=== PATIENT | male | born 1945 | race Caucasian/White ===

== ENCOUNTER 2017-04-14 14:00 | Outpatient (CLI) | payer MEDICARE, OTHER | END 2017-04-14 14:01 | disposition home or self-care (01) | LOC: LAB.R 14:00 | PROVIDERS: ATTEND Family Medicine | DX: S81.801D Unspecified open wound, right lower leg, subsequent encounter (principal) | CPT/HCPCS: 87070; 87077; 87205 ==

== ENCOUNTER 2017-04-22 12:55 | Outpatient (CLI) | payer MEDICARE, OTHER | END 2017-04-22 12:56 | disposition home or self-care (01) | LOC: LAB.F 12:55 | PROVIDERS: ATTEND Physician Assistant | DX: I48.91 Unspecified atrial fibrillation (principal) | CPT/HCPCS: 85610 ==

== ENCOUNTER 2017-04-25 13:21 | Outpatient (CLI) | payer MEDICARE, OTHER | END 2017-04-25 13:22 | disposition home or self-care (01) | LOC: LAB.F 13:21 | PROVIDERS: ATTEND Physician Assistant | DX: I48.91 Unspecified atrial fibrillation (principal) | CPT/HCPCS: 85610 ==

== ENCOUNTER 2017-04-29 15:56 | Outpatient (CLI) | payer MEDICARE, OTHER | END 2017-04-29 15:57 | disposition home or self-care (01) | LOC: LAB.F 15:56 | PROVIDERS: ATTEND Physician Assistant | DX: I48.91 Unspecified atrial fibrillation (principal) | CPT/HCPCS: 85610 ==

== ENCOUNTER 2017-05-05 09:34 | Outpatient (CLI) | payer MEDICARE, OTHER ==
[2017-05-05 18:19] LABS: BILIRUBIN,DIRECT 0.1 mg/dL (0.1-0.5); BILIRUBIN,TOTAL 0.7 mg/dL (0.2-1.0); CHOL/HDL RATIO 2.7 (<5.0); CHOLESTEROL 169 mg/dL; HDL CHOLESTEROL 63 mg/dL; LDL/HDL RATIO 1.1 (<3.6); TOTAL PROTEIN 6.6 g/dL (6.7-8.2); TRIGLYCERIDES 172 mg/dL; VLDL CHOLESTEROL 34 mg/dL
== END 2017-05-05 09:35 | disposition home or self-care (01) ==
LOC: LAB.F 09:34
PROVIDERS: ATTEND Internal Medicine Cardiovascular Disease
DX: I48.91 Unspecified atrial fibrillation (principal); I25.10 Atherosclerotic heart disease of native coronary artery without angina pectoris
CPT/HCPCS: 36415; 80061; 80076; 85610

== ENCOUNTER 2017-05-13 15:26 | Outpatient (CLI) | payer MEDICARE, OTHER | END 2017-05-13 15:27 | disposition home or self-care (01) | LOC: LAB.F 15:26 | PROVIDERS: ATTEND Physician Assistant | DX: I48.91 Unspecified atrial fibrillation (principal) | CPT/HCPCS: 85610 ==

== ENCOUNTER 2017-05-20 14:36 | Outpatient (CLI) | payer MEDICARE, OTHER | END 2017-05-20 14:37 | disposition home or self-care (01) | LOC: LAB.F 14:36 | PROVIDERS: ATTEND Physician Assistant | DX: I48.91 Unspecified atrial fibrillation (principal) | CPT/HCPCS: 85610 ==

== ENCOUNTER 2017-05-30 09:51 | Outpatient (CLI) | payer MEDICARE, OTHER | END 2017-05-30 09:52 | disposition home or self-care (01) | LOC: LAB.F 09:51 | PROVIDERS: ATTEND Physician Assistant | DX: I48.91 Unspecified atrial fibrillation (principal) | CPT/HCPCS: 85610 ==

== ENCOUNTER 2017-06-08 09:51 | Outpatient (CLI) | payer MEDICARE, OTHER | END 2017-06-08 09:52 | disposition home or self-care (01) | LOC: LAB.F 09:51 | PROVIDERS: ATTEND Physician Assistant | DX: I48.91 Unspecified atrial fibrillation (principal) | CPT/HCPCS: 85610 ==

== ENCOUNTER 2017-06-16 10:59 | Outpatient (CLI) | payer MEDICARE, OTHER | END 2017-06-16 11:00 | disposition home or self-care (01) | LOC: LAB.F 10:59 | PROVIDERS: ATTEND Physician Assistant | DX: I48.91 Unspecified atrial fibrillation (principal) | CPT/HCPCS: 85610 ==

== ENCOUNTER 2017-06-29 15:19 | Outpatient (CLI) | payer MEDICARE, OTHER | END 2017-06-29 15:20 | disposition home or self-care (01) | LOC: LAB.F 15:19 | PROVIDERS: ATTEND Physician Assistant | DX: I48.91 Unspecified atrial fibrillation (principal) | CPT/HCPCS: 85610 ==

== ENCOUNTER 2020-06-09 12:17 | Emergency (ER) | payer MEDICARE, OTHER ==
[2020-06-09 12:50] LABS: BASOPHILS # (AUTO) 0.1 10^3/uL (0.0-0.1); BASOPHILS % (AUTO) 0.6 %; EOSINOPHILS # (AUTO) 0.2 10^3/uL (0.0-0.7); EOSINOPHILS % (AUTO) 2.4 %; HGB - HEMOGLOBIN 7.9 g/dL (14.0-18.0); LYMPHOCYTES # (AUTO) 2.3 10^3/uL (1.5-3.5); LYMPHOCYTES % (AUTO) 25.9 %; MEAN CORPUSCULAR HEMOGLOBIN 23.6 pg (27.0-31.0); MEAN CORPUSCULAR HGB CONC 29.4 g/dL (32.0-36.0); MEAN CORPUSCULAR VOLUME 80.3 fL (80.0-94.0); MONOCYTES # (AUTO) 1.1 10^3/uL (0.0-1.0); MONOCYTES % (AUTO) 12.2 %; NEUTROPHILS # (AUTO) 5.3 10^3/uL (1.5-6.6); NEUTROPHILS % (AUTO) 58.7 %; PLT - PLATELET COUNT 389 10^3/uL (130-450); RED BLOOD COUNT 3.35 10^6/uL (4.70-6.10); RED CELL DISTRIBUTION WIDTH 14.8 % (12.0-15.0)
--- NOTE | 2020-06-09 12:55 | ED Physician Documentation ---
History of Present Illness - Stated complaint Stated Complaint: FATIGUE - Chief complaint Chief Complaint: General - History obtained from History obtained from: Patient - Additonal information Additional information: 75-year-old gentleman had a aortic valve replacement with aortic aneurysm repair and single-vessel CABG about 3 years ago. About a month ago he had a bout of central abdominal pain "gnawing." More recently over the last week has become very fatigued in a progressive fashion with shortness of breath. No associated chest pain. He does note dark stools. He saw his ux specialist and labs were done 6 days ago with hemoglobin of 7.1. He has no history of GI bleeding or anemia. No NSAID use. No heavy alcohol use. Review of Systems Ten Systems: 10 systems reviewed and negative Constitutional: reports: Reviewed and negative Throat: reports: Reviewed and negative Cardiac: denies: Chest pain / pressure, Palpitations Respiratory: reports: Dyspnea. denies: Cough PD PAST MEDICAL HISTORY - Present Medications Home Medications: Ambulatory Orders Medication Instructions Recorded Confirmed Ferrous Sulfate 325 mg PO BID #120 tablet 06/09/20 Omeprazole 20 mg PO DAILY #90 capsule. 06/09/20 - Allergies Allergies/Adverse Reactions: Allergies Allergy/AdvReac Type Severity Reaction Status Date / Time No Known Drug Allergies Allergy Verified 06/09/20 12:52 PD ED PE NORMAL - Vitals Vital signs reviewed: Yes - General General: Alert and oriented X 3, No acute distress - HEENT HEENT: PERRL, EOMI - Neck Neck: Supple, no meningeal sign, No bony TTP - Cardiac Cardiac: RRR, No murmur, Other (Closing click) - Respiratory Respiratory: No respiratory distress, Clear bilaterally - Abdomen Abdomen: Normal bowel sounds, Soft, Non tender - Rectal Rectal: Other (Enlarged nontender prostate, scant stool in the vault) - Back Back: No CVA TTP, No spinal TTP - Derm Derm: Normal color, Warm and dry - Extremities Extremities: No edema, No calf tenderness / cord - Neuro Neuro: Alert and oriented X 3, Normal speech Results - Vitals Vitals: Vital Signs - 24 hr 06/09/20 06/09/20 06/09/20 12:27 13:00 14:07 Temperature 36.4 C L Heart Rate 50 L 74 55 L Respiratory 22 16 212 H Rate Blood Pressure 156/75 H 167/94 H 133/60 H O2 Saturation 100 97 100 Oxygen O2 Source Room air - Labs Labs: Microbiology 06/09/20 12:50 Occult Blood - Final Stool Laboratory Tests 06/09/20 06/09/20 06/09/20 12:30 12:30 12:30 WBC 9.0 RBC 3.35 L Hgb 7.9 L Hct 26.9 L MCV 80.3 MCH 23.6 L MCHC 29.4 L RDW 14.8 Plt Count 389 MPV 10.0 Neut # (Auto) 5.3 Lymph # (Auto) 2.3 [place] # (Auto) 1.1 H Eos # (Auto) 0.2 Baso # (Auto) 0.1 Absolute Nucleated RBC 0.00 Nucleated RBC % 0.0 PT INR Sodium 135 Potassium 4.1 Chloride 103 Carbon Dioxide 26 Anion Gap 6.0 BUN 23 H Creatinine 1.0 Estimated GFR (MDRD) 73 L Glucose 104 H Calcium 9.1 Iron TIBC % Saturation Transferrin Total Bilirubin 0.6 AST 15 ALT 14 Alkaline Phosphatase 60 Total Protein 6.9 Albumin 4.3 Globulin 2.6 Albumin/Globulin Ratio 1.7 Lipase 37 Blood Type A POSITIVE Blood Type Recheck Antibody Screen NEGATIVE Crossmatch IS Only See Detail 06/09/20 06/09/20 06/09/20 12:30 13:37 13:37 WBC RBC Hgb Hct MCV MCH MCHC RDW Plt Count MPV Neut # (Auto) Lymph # (Auto) [place] # (Auto) Eos # (Auto) Baso # (Auto) Absolute Nucleated RBC Nucleated RBC % PT 12.0 INR 1.1 Sodium Potassium Chloride Carbon Dioxide Anion Gap BUN Creatinine Estimated GFR (MDRD) Glucose Calcium Iron 16 L TIBC 428 % Saturation 4 L Transferrin 306 Total Bilirubin AST ALT Alkaline Phosphatase Total Protein Albumin Globulin Albumin/Globulin Ratio Lipase Blood Type Blood Type Recheck A POSITIVE Antibody Screen Crossmatch IS Only PD MEDICAL DECISION MAKING - ED course ED course: 75-year-old gentleman presents with fatigue and dyspnea. Had an outpatient hemoglobin of 7.1, 6 days ago. Also has some symptoms suggestive of ulcer disease with gnawing pain a month ago and after discussion of this he also notes that he was chronically on Prilosec but stopped it about 2 months ago. Guaiac is negative but there was only scant stool in the vault, so diagnostic accuracy may be lacking there. His hemoglobin is 7.9 suggesting that he is already improving, we discussed transfusion, and he is considering, but I am generally trying to dissuade him since he is borderline for transfusion and seems to be going the right direction without it. Departure - Departure Disposition: 01 Home, Self Care Clinical Impression: Anemia, iron deficiency Qualifiers: Iron deficiency anemia type: chronic blood loss Qualified Code(s): D50.0 - Iron deficiency anemia secondary to blood loss (chronic) Condition: Good Record reviewed to determine appropriate education?: Yes Instructions: ED PUD Vs Gastritis, ED Anemia Iron Deficiency Prescriptions: Ferrous Sulfate 325 mg PO BID #120 tablet Omeprazole 20 mg PO DAILY #90 capsule. Comments: As discussed, the entire history sounds like you probably developed an ulcer or gastritis from stopping omeprazole a couple of months ago and subsequently had slow bleeding from this which dropped her hemoglobin but subsequently for what ever reason actually improved a bit over the last 6 days. You should start an iron supplement and restart the omeprazole. Follow-up with your doctor for consideration for upper endoscopy and repeat labs. Return if worse.
[2020-06-09 13:02] LABS: ALBUMIN 4.3 g/dL (3.2-5.5); ALBUMIN/GLOBULIN RATIO 1.7 (1.0-2.2); BILIRUBIN,TOTAL 0.6 mg/dL (0.2-1.0); CALCIUM 9.1 mg/dL (8.5-10.3); INR 1.1 (0.8-1.2); TOTAL PROTEIN 6.9 g/dL (6.7-8.2)
[2020-06-09 14:01] LABS: % IRON SATURATION 4 % (20-50); IRON 16 ug/dL (45-182); TOTAL IRON BINDING CAPACITY 428 ug/dL (250-450); TRANSFERRIN 306 mg/dL (180-329)
[2020-06-09 14:08] VITALS: BP 133/60
== END 2020-06-09 14:27 | disposition home or self-care (01) ==
LOC: ED 12:17
DX: D50.0 Iron deficiency anemia secondary to blood loss (chronic) (principal); N40.0 Benign prostatic hyperplasia without lower urinary tract symptoms; Z95.1 Presence of aortocoronary bypass graft; Z95.2 Presence of prosthetic heart valve
CPT/HCPCS: 36415; 80053; 82272; 83540; 83690; 84466; 85025; 85610; 86850; 86900; 86901; 86920; 99283; 99284

== ENCOUNTER 2020-06-18 14:17 | Outpatient (CLI) | payer MEDICARE, OTHER ==
[2020-06-18 20:09] LABS: BASOPHILS # (AUTO) 0.1 10^3/uL (0.0-0.1); BASOPHILS % (AUTO) 0.6 %; EOSINOPHILS # (AUTO) 0.2 10^3/uL (0.0-0.7); EOSINOPHILS % (AUTO) 2.3 %; HGB - HEMOGLOBIN 8.8 g/dL (14.0-18.0); LYMPHOCYTES # (AUTO) 2.2 10^3/uL (1.5-3.5); MEAN CORPUSCULAR HEMOGLOBIN 24.6 pg (27.0-31.0); MEAN CORPUSCULAR HGB CONC 28.2 g/dL (32.0-36.0); MEAN CORPUSCULAR VOLUME 87.4 fL (80.0-94.0); MEAN PLATELET VOLUME 10.8 fL (7.4-11.4); MONOCYTES # (AUTO) 0.8 10^3/uL (0.0-1.0); MONOCYTES % (AUTO) 8.6 %; NEUTROPHILS # (AUTO) 5.5 10^3/uL (1.5-6.6); NEUTROPHILS % (AUTO) 63.2 %; PLT - PLATELET COUNT 374 10^3/uL (130-450); RED BLOOD COUNT 3.57 10^6/uL (4.70-6.10); RED CELL DISTRIBUTION WIDTH 22.5 % (12.0-15.0); WHITE BLOOD COUNT 8.8 x10^3/uL (4.8-10.8)
[2020-06-18 20:23] LABS: PLATELET ESTIMATE, MANUAL NORMAL (130-450,000) (NORMAL); PLATELET MORPHOLOGY NORMAL APPEARANCE (NORMAL)
[2020-06-18 20:29] LABS: % IRON SATURATION 22 % (20-50); IRON 100 ug/dL (45-182); TOTAL IRON BINDING CAPACITY 447 ug/dL (250-450); TRANSFERRIN 319 mg/dL (180-329)
== END 2020-06-18 14:18 | disposition home or self-care (01) ==
LOC: LAB.S 14:17
PROVIDERS: ATTEND Nurse Practitioner Family
DX: D50.8 Other iron deficiency anemias (principal)
CPT/HCPCS: 36415; 82728; 83540; 84466; 85025

== ENCOUNTER 2020-06-25 14:03 | Outpatient (CLI) | payer MEDICARE, OTHER ==
[2020-06-25 20:04] LABS: BASOPHILS % (AUTO) 0.6 %; EOSINOPHILS # (AUTO) 0.2 10^3/uL (0.0-0.7); EOSINOPHILS % (AUTO) 2.7 %; HGB - HEMOGLOBIN 10.5 g/dL (14.0-18.0); LYMPHOCYTES # (AUTO) 1.9 10^3/uL (1.5-3.5); LYMPHOCYTES % (AUTO) 28.6 %; MEAN CORPUSCULAR HGB CONC 29.2 g/dL (32.0-36.0); MEAN CORPUSCULAR VOLUME 89.1 fL (80.0-94.0); MEAN PLATELET VOLUME 11.3 fL (7.4-11.4); MONOCYTES # (AUTO) 0.9 10^3/uL (0.0-1.0); NEUTROPHILS # (AUTO) 3.6 10^3/uL (1.5-6.6); NEUTROPHILS % (AUTO) 53.8 %; PLT - PLATELET COUNT 332 10^3/uL (130-450); RED BLOOD COUNT 4.04 10^6/uL (4.70-6.10); RED CELL DISTRIBUTION WIDTH 22.6 % (12.0-15.0); WHITE BLOOD COUNT 6.6 x10^3/uL (4.8-10.8)
[2020-06-25 20:18] LABS: PLATELET ESTIMATE, MANUAL NORMAL (130-450,000) (NORMAL); PLATELET MORPHOLOGY NORMAL APPEARANCE (NORMAL); RBC MORPHOLOGY (MULTIPLE) 1+ ANISOCYTOSIS (NORMAL)
== END 2020-06-25 14:04 | disposition home or self-care (01) ==
LOC: LAB.S 14:03
PROVIDERS: ATTEND Nurse Practitioner Family
DX: D50.8 Other iron deficiency anemias (principal)
CPT/HCPCS: 36415; 85025

== ENCOUNTER 2020-07-02 14:37 | Outpatient (CLI) | payer MEDICARE, OTHER ==
[2020-07-02 20:25] LABS: EOSINOPHILS # (AUTO) 0.1 10^3/uL (0.0-0.7); EOSINOPHILS % (AUTO) 2.1 %; HGB - HEMOGLOBIN 10.8 g/dL (14.0-18.0)
[2020-07-02 20:38] LABS: BASOPHILS % (AUTO) 0.5 %; LYMPHOCYTES % (AUTO) 29.8 %; MEAN CORPUSCULAR HGB CONC 29.1 g/dL (32.0-36.0); MEAN CORPUSCULAR VOLUME 89.2 fL (80.0-94.0); MEAN PLATELET VOLUME 10.6 fL (7.4-11.4); MONOCYTES # (AUTO) 0.8 10^3/uL (0.0-1.0); MONOCYTES % (AUTO) 11.3 %; NEUTROPHILS # (AUTO) 3.7 10^3/uL (1.5-6.6); PLT - PLATELET COUNT 316 10^3/uL (130-450); RED BLOOD COUNT 4.16 10^6/uL (4.70-6.10); RED CELL DISTRIBUTION WIDTH 21.2 % (12.0-15.0); WHITE BLOOD COUNT 6.6 x10^3/uL (4.8-10.8)
[2020-07-02 21:21] LABS: PLATELET ESTIMATE, MANUAL NORMAL (130-450,000) (NORMAL); PLATELET MORPHOLOGY NORMAL APPEARANCE (NORMAL)
== END 2020-07-02 14:38 | disposition home or self-care (01) ==
LOC: LAB.S 14:37
PROVIDERS: ATTEND Nurse Practitioner Family
DX: D50.8 Other iron deficiency anemias (principal)
CPT/HCPCS: 36415; 85025

== ENCOUNTER 2020-07-16 12:30 | Outpatient (CLI) | payer MEDICARE, OTHER ==
[2020-07-16 12:55] LABS: BASOPHILS # (AUTO) 0.1 10^3/uL (0.0-0.1); BASOPHILS % (AUTO) 0.6 %; EOSINOPHILS # (AUTO) 0.2 10^3/uL (0.0-0.7); EOSINOPHILS % (AUTO) 1.8 %; LYMPHOCYTES # (AUTO) 1.9 10^3/uL (1.5-3.5); LYMPHOCYTES % (AUTO) 23.5 %; MEAN CORPUSCULAR HGB CONC 30.9 g/dL (32.0-36.0); MEAN CORPUSCULAR VOLUME 87.3 fL (80.0-94.0); MEAN PLATELET VOLUME 9.9 fL (7.4-11.4); MONOCYTES % (AUTO) 11.8 %; NEUTROPHILS # (AUTO) 5.1 10^3/uL (1.5-6.6); NEUTROPHILS % (AUTO) 62.1 %; PLT - PLATELET COUNT 295 10^3/uL (130-450); RED BLOOD COUNT 4.08 10^6/uL (4.70-6.10); WHITE BLOOD COUNT 8.2 x10^3/uL (4.8-10.8)
== END 2020-07-16 12:31 | disposition home or self-care (01) ==
LOC: LAB 12:30
PROVIDERS: ATTEND Nurse Practitioner Family
DX: D50.8 Other iron deficiency anemias (principal)
CPT/HCPCS: 36415; 85025

== ENCOUNTER 2021-05-05 15:00 | Outpatient (CLI) | payer MEDICARE, OTHER | END 2021-05-05 15:01 | disposition home or self-care (01) | LOC: COV 15:00 | PROVIDERS: ATTEND Internal Medicine Gastroenterology | DX: Z01.812 Encounter for preprocedural laboratory examination (principal); I10 Essential (primary) hypertension; Z20.822 Contact with and (suspected) exposure to COVID-19 ==